=== PATIENT | male | born 1990 | race Caucasian/White ===

== ENCOUNTER 2024-11-10 20:17 | Emergency (ER) | payer MEDICARE, SELFPAY ==
--- NOTE | 2024-11-10 20:19 | EDNOTE_ITS ---
ED General RME/HPI General Chief complaint: Anxiety Stated complaint: ANXIETY Time Seen by Provider: 11/10/24 20:18 Arrival date/time: 11/10/24 20:17 Weakness lightheadedness HPI patient presents to the ER via EMS with a [employer] escort after talking on the phone while in long-term regarding a family member who we had not heard from in 10 years causing his heart to stop . EMS reports stable vital signs patient started reporting mild dizziness. Patient has a history of a TBI at 3 years old and is schizophrenic stating he takes all his medications with regularity. Patient has no complaints of pain. Related Data Allergies Allergy/AdvReac Type Severity Reaction Status Date / Time No Known Allergies Allergy Verified 11/10/24 20:52 Review of Systems Review of Systems Narrative Review of Systems: GEN: No fever, no chills, no weight loss EYES: No discharge, no visual changes, no pain HEENT: No ear pain, no congestion, no sore throat PULM: No shortness of breath, no cough, no congestion CV: No chest pain, no dyspnea on exertion, no palpitations GI: No nausea, no vomiting, no diarrhea, no pain, no constipation : No frequency, no urgency, no dysuria MUSC/SKEL: No joint pain, no back pain SKIN: No rash PSYCH: No hallucinations, no depression HEME/LYMPH: No easy bleeding or bruising tendencies NEURO: + weakness, no headache ED Exam Narrative Physical exam: [General: Appears not in any acute distress Head normocephalic HEENT: Within acceptable limits Neck is supple nontender Chest equal chest rise nontender to palpation Respiratory: Clear to auscultation no wheezes crackles or rubs CV: Rate rhythm is regular no murmurs rubs or clicks Abdomen is distended secondary to body habitus soft nontender no masses positive bowel sounds all 4 quadrants Back: No CVA tenderness no spinous process tenderness from cervical spine thoracic and lumbar spine Skin: Intact no petechiae rash induration ulceration or crepitus Extremities: Moving all extremity against resistance cap refill less than 2 seconds neurosensory intact Neuro: Awake alert oriented x3 Glascow coma 15 no focal deficits] slow baseline speech patient states he is his normal speech pattern. Course Quality Measures none Orders Category Date Time Status Alcohol, Urine Stat Lab 11/10/24 21:05 Completed CBC Stat Lab 11/10/24 20:34 Completed CMP [Comprehensive Metabolic Panel] Stat Lab 11/10/24 20:34 Completed Drug Screen,Urine Stat Lab 11/10/24 21:05 Completed Vital Signs Vital signs: Vital Signs Temperature 98.3 F 11/10/24 20:30 Pulse Rate 67 11/10/24 20:30 Respiratory Rate 18 11/10/24 20:30 Blood Pressure 111/66 11/10/24 20:30 Pulse Oximetry (%) 94 L 11/10/24 20:30 Oxygen Delivery Method Room Air 11/10/24 20:30 Discharge Plan Plan Patient Disposition: Usp/Court/Law Problem List Clinical Impression: Acute anxiety, Hypoglycemia, Medical clearance for incarceration Patient/Caregiver Discharge Instructions Education Materials: Treating Anxiety Disorders ..., ED Anxiety Reaction, ED Hypoglycemia, Nondiabetic Additional Instructions: Anxiety vs near syncope; labs are unremarkable Blood glucose 73, given food Print Language: Citizen Of [place] PA/BRANCH STORE MANAGER Supervising Physician PA/BRANCH STORE MANAGER Supervising Physician: Ramiro Brower ENP MDM Clinical Information Provided by: patient, EMS and law enforcement Medical Records reviewed [facility] Meds/Rx considered, not ordered None Labs/Rad/Tests considered, not ordered None Chronic Illness/Social Conditions Explain: TBI at 3 years of age schizophrenia Labs Labs: interpreted by sc Lab(s) Interpretation(s): CBC shows no acute leukocytosis anemia there is a mild thrombocytopenia CMP shows no significant electrolyte imbalances blood glucose of 73. UDS is negative Imaging Imaging interpretation: none Diagnosis Differential Diagnosis ED Complaint MDM: Hypoglycemia near syncope anxiety reaction
[2024-11-10 20:30] VITALS: BP 111/66; PULSE 67; PULSE 76; RESP 18; TEMP 36.8; O2SAT 94; O2SAT 96
[2024-11-10 20:52] LABS: Basophils # (Auto) 0.0 Thou/mm3 (0.0-0.2); Basophils % (Auto) 0 % (0-2.5); Eosinophils # (Auto) 0.0 Thou/mm3 (0.0-0.5); Eosinophils % (Auto) 0 % (0-10); Hematocrit 41.5 % (41.0-53.0); Hemoglobin 14.0 g/dL (13.5-16.0); Immature Granulocytes Auto 0.01 Thou/mm3 (0.00-0.00); Lymphocytes # (Auto) 2.5 Thou/mm3 (1.0-4.8); Lymphocytes % (Auto) 36 % (10-50); Mean Corpuscular HGB Conc 33.7 g/dl (31.0-37.0); Mean Corpuscular Hemoglobin 32.4 pg (25.0-35.0); Mean Corpuscular Volume 96 fL (80-100); Monocytes # (Auto) 0.7 Thou/mm3 (0.0-0.8); Monocytes % (Auto) 10 % (0-12); Neutrophils # (Auto) 3.7 Thou/mm3 (1.8-7.7); Neutrophils % (Auto) 54 % (37-80); Nucleated Red Blood Cell # 0.00 Thou/mm3 (0.00-0.00); Nucleated Red Blood Cell % 0 /100 WBC (0); Platelet Count 131 Thou/mm3 (140-440); RDW Standard Deviation 47.5 fL (35.1-43.9); Red Blood Count 4.32 Miln/mm3 (4.50-5.90); White Blood Count 6.9 Thou/mm3 (3.8-10.6)
[2024-11-10 21:09] LABS: Alanine Aminotransferase 12 U/L (10-49); Albumin, Serum 4.4 gm/dL (3.5-5.0); Albumin/Globulin Ratio 2.0 (1.2-2.2); Alkaline Phosphatase 62 U/L (46-116); Anion Gap 6 (7-16); Aspartate Amino Transferase 13 U/L (0-34); BUN/Creatinine Ratio 15 Ratio (12-20); Bilirubin,Total 0.4 mg/dL (0.3-1.2); Blood Urea Nitrogen 12 mg/dL (9-23); Calcium 9.7 mg/dL (8.3-10.6); Calcium (Corrected) 9.7 mg/dL (8.5-10.1); Carbon Dioxide 30.7 mMol/L (20.0-31.0); Chloride 106 mMol/L (98-107); Creatinine (Component) 0.8 mg/dL (0.6-1.3); Globulin 2.2 gm/dL (2.3-3.5); Glucose 73 mg/dL (74-106); Osmolality,Calculated 283 (275-295); Potassium 4.4 mMol/L (3.4-5.1); Sodium 143 mMol/L (136-145); Total Protein 6.6 gm/dL (5.7-8.2); eGFR > 60 See Note
[2024-11-10 22:02] LABS: Alcohol, Urine Negative (Negative); Amphetamine/Methamp Scrn,U Negative (Negative); Barbiturate Screen,Urine Negative (Negative); Benzodiazepines Screen,Urine Negative (Negative); Benzoylecgonine Screen, Ur Negative (Negative); Fentanyl Screen,Urine Negative (Negative); Opiate Screen,Urine Negative (Negative); THC Screen,Urine Negative (Negative)
[2024-11-10 22:30] VITALS: BP 117/75; PULSE 60; RESP 18; TEMP 36.8; O2SAT 98
== END 2024-11-10 22:30 ==
LOC: SERX 23:23
PROVIDERS: Registered Nurse General Practice; Emergency Provider Emergency Medicine
DX: F41.9 Anxiety disorder, unspecified (principal); E16.2 Hypoglycemia, unspecified; Z02.89 Encounter for other administrative examinations
CPT/HCPCS: 36415; 80053; 80307; 80320; 85025; 99283; G0480